=== PATIENT | female | born 1965 | race Caucasian/White ===

== ENCOUNTER → 2017-11-05 | Outpatient (CLI) | payer BC | LOC: MC.RAD 14:13 | DX: Z12.31 Encounter for screening mammogram for malignant neoplasm of breast (principal) ==

== ENCOUNTER → 2019-02-08 | Outpatient (CLI) | payer BC | LOC: MC.RAD 01-05 10:20 | DX: Z12.31 Encounter for screening mammogram for malignant neoplasm of breast (principal) ==

== ENCOUNTER → 2021-06-04 | Outpatient (CLI) | payer BC | LOC: MC.RAD 15:44 | DX: Z12.31 Encounter for screening mammogram for malignant neoplasm of breast (principal) ==

== ENCOUNTER → 2022-06-12 | Outpatient (CLI) | payer BC | LOC: MC.RAD 13:51 | DX: Z12.31 Encounter for screening mammogram for malignant neoplasm of breast (principal) ==